=== PATIENT | male | born 1940 | race Caucasian/White ===

== ENCOUNTER 2024-12-01 11:36 | Emergency (ER) | payer MEDICARE, BC ==
[2024-12-01] MEDS ORDERED: Sodium Chloride 0.9% 10 ML Syringe FLUSH PRN ×2 (11:39→11:56)
[2024-12-01 12:05] LABS: BASOPHILS PERCENT AUTO 0.4 % (0.0-1.0); EOSINOPHILS PERCENT AUTO 2.5 % (1.0-3.0); HEMATOCRIT 39.4 % (40.0-54.0); HEMOGLOBIN 12.7 g/dL (14.0-18.0); MEAN CORPUSCULAR HEMOGLOBIN 30.4 pg (27.0-34.0); MEAN CORPUSCULAR HGB CONC 32.2 g/dL (33.0-35.0); MEAN CORPUSCULAR VOLUME 94.3 fL (80-100); MONOCYTES PERCENT AUTO 8.1 % (2-8); PLATELET COUNT,PLT 174 10^3/uL (150-450); RED BLOOD CELL COUNT 4.18 10^6/uL (4.6-6.2); WHITE BLOOD CELL COUNT,WBC 5.5 10^3/uL (5.0-10.0)
[2024-12-01 12:25] LABS: ALBUMIN 3.2 g/dL (3.4-5.0); ANION GAP 10.8 mEq/L (7-13); BILIRUBIN TOTAL 0.4 mg/dL (0.2-1.0); BUN/CREATININE RATIO 15.4 (No establ ref range); C-REACTIVE PROTEIN 0.54 ng/dL (<=0.50); CALCIUM 8.8 mg/dL (8.5-10.1); CREATININE 1.36 mg/dL (0.70-1.30); EST CRCL DRUG DOSING (CG) 39.71 mL/min; POTASSIUM,K 4.8 mmol/L (3.5-5.1); PROTEIN TOTAL,TP 7.1 g/dL (6.4-8.2)
[2024-12-01 12:27] LABS: A/G RATIO 0.82
[2024-12-01 12:28] LABS: INR 1.1 (0.9-1.2); PROTHROMBIN TIME 11.2 SEC (9.0-12.0); PTT,PARTIAL THROMBOPLSTIN TIME 28.9 SEC (22.0-34.0)
[2024-12-01] MEDS: methylPREDNISolone Sodium Succinate 125 MG/2 ML SDV IVPUSH ONE (13:50)
== END 2024-12-01 14:06 | disposition home or self-care (01) ==
LOC: DL.ED 11:36
DX: R06.02 Shortness of breath (principal); Z91.013 Allergy to seafood
CPT/HCPCS: 36415; 71045; 80053; 83605; 83880; 84484; 85025; 85610; 85730; 86140; 93005; 93010; 96374; 99284; 99285-25; J2919

== ENCOUNTER 2025-04-03 08:43 | Inpatient (IN) | payer MEDICARE, BC ==
[2025-04-03] MEDS ORDERED: Sodium Chloride 0.9% 10 ML Syringe FLUSH PRN (08:56)
[2025-04-03 09:06] LABS: BASOPHILS PERCENT AUTO 0.1 % (0.0-1.0); EOSINOPHILS PERCENT AUTO 2.3 % (1.0-3.0); HEMATOCRIT 26.6 % (40.0-54.0); HEMOGLOBIN 8.6 g/dL (14.0-18.0); LYMPHOCYTES PERCENT AUTO 22.6 % (20.5-50.1); MEAN CORPUSCULAR HEMOGLOBIN 30.6 pg (27.0-34.0); MEAN CORPUSCULAR HGB CONC 32.3 g/dL (33.0-35.0); MEAN CORPUSCULAR VOLUME 94.7 fL (80-100); MONOCYTES PERCENT AUTO 10.3 % (2-8); NEUTROPHILS PERCENT AUTO 64.7 % (42.2-75.2); PLATELET COUNT,PLT 86 10^3/uL (150-450); RED BLOOD CELL COUNT 2.81 10^6/uL (4.6-6.2); WHITE BLOOD CELL COUNT,WBC 7.4 10^3/uL (5.0-10.0)
[2025-04-03 09:23] LABS: INR 1.1 (0.9-1.2); PROTHROMBIN TIME 11.6 SEC (9.0-12.0); PTT,PARTIAL THROMBOPLSTIN TIME 29.4 SEC (22.0-34.0)
[2025-04-03 09:28] LABS: ALBUMIN 2.5 g/dL (3.4-5.0); ANION GAP 12.1 mEq/L (7-13); BILIRUBIN TOTAL 0.7 mg/dL (0.2-1.0); BUN/CREATININE RATIO 18.5 (No establ ref range); CALCIUM 8.4 mg/dL (8.5-10.1); CREATININE 1.24 mg/dL (0.70-1.30); EST CRCL DRUG DOSING (CG) 35.81 mL/min; POTASSIUM,K 4.1 mmol/L (3.5-5.1); PROTEIN TOTAL,TP 5.8 g/dL (6.4-8.2)
[2025-04-03 09:29] LABS: A/G RATIO 0.76
[2025-04-03] MEDS: Furosemide 40 MG/4 ML VIAL IVPUSH ONE (10:50)
[2025-04-03 11:24] LABS: PERCENT FE SATURATION 9.2 % (20.0-50.0)
[2025-04-03 11:35] LABS: T4 FREE 0.87 ng/dL (0.76-1.46); TSH ULTRASENSITIVE 4.58 uIU/mL (0.36-3.74)
[2025-04-03] MEDS ORDERED: Metoprolol Tartrate 5 MG/5 ML SDV IVPUSH PRN (12:30)
[2025-04-03] MEDS ORDERED: hydrALAZINE 20 MG/ML SDV IVPUSH PRN (12:30)
[2025-04-03] MEDS ORDERED: Acetaminophen 325 MG Tab PO PRN (13:19)
[2025-04-03] MEDS ORDERED: Sennosides/Docusate Sodium 50-8.6 MG Tab PO PRN (13:19)
[2025-04-03] MEDS ORDERED: Ondansetron 4 MG/2 ML SDV IVPUSH PRN (13:19)
[2025-04-03] MEDS ORDERED: HYDROmorphone 0.5 MG/0.5 ML Syringe IVPUSH PRN ×2 (13:19→13:36)
[2025-04-03] MEDS ORDERED: Albuterol/Ipratropium 3.0-0.5 MG/3 ML Neb Soln NEB PRN (13:19)
[2025-04-03] MEDS ORDERED: Polyethylene Glycol 3350 Powder 17 GM Packet PO PRN (13:19)
[2025-04-03] MEDS ORDERED: Naloxone 2 MG/2 ML Syringe IVPUSH PRN (13:19)
[2025-04-03] MEDS ORDERED: Melatonin 3 MG Tab PO PRN (13:19)
[2025-04-03] MEDS ORDERED: traMADol 50 MG Tab PO PRN (13:35)
[2025-04-03] MEDS: Albumin Human 25 GM in Premix Bag 1 BAG IV SCH (14:08)
[2025-04-03] MEDS ORDERED: Nystatin Topical Powder 60 GM Bottle TOP PRN (14:21)
[2025-04-03] MEDS: Furosemide 100 MG in Sodium Chloride 0.9% 90 ML IV SCH (20:54)
[2025-04-03] MEDS: Tamsulosin 0.4 MG Cap.ER PO SCH (20:55)
[2025-04-03] MEDS: Amitriptyline 25 MG Tab PO SCH (20:55)
[2025-04-03] MEDS: atorvaSTATin 20 MG Tab PO SCH (20:55)
[2025-04-03] MEDS: Docusate Sodium 100 MG Cap PO SCH (20:55)
[2025-04-03] MEDS: Multivitamins with Iron/Calcium/Folic Acid/Minerals Tab PO SCH (20:55)
[2025-04-03] MEDS ORDERED: Tamsulosin 0.4 MG Cap.ER PO SCH (21:00)
[2025-04-03] MEDS ORDERED: Docusate Sodium 100 MG Cap PO SCH (21:00)
[2025-04-04 06:20] LABS: HEMATOCRIT 26.5 % (40.0-54.0); HEMOGLOBIN 8.7 g/dL (14.0-18.0); MEAN CORPUSCULAR HEMOGLOBIN 30.7 pg (27.0-34.0); MEAN CORPUSCULAR HGB CONC 32.8 g/dL (33.0-35.0); MEAN CORPUSCULAR VOLUME 93.6 fL (80-100); PLATELET COUNT,PLT 74 10^3/uL (150-450); RED BLOOD CELL COUNT 2.83 10^6/uL (4.6-6.2); WHITE BLOOD CELL COUNT,WBC 7.4 10^3/uL (5.0-10.0)
[2025-04-04 06:37] LABS: ALBUMIN 3.3 g/dL (3.4-5.0); ANION GAP 14.8 mEq/L (7-13); BILIRUBIN TOTAL 1.5 mg/dL (0.2-1.0); BUN/CREATININE RATIO 22.4 (No establ ref range); CALCIUM 8.4 mg/dL (8.5-10.1); CREATININE 1.34 mg/dL (0.70-1.30); EST CRCL DRUG DOSING (CG) 33.13 mL/min; MAGNESIUM 1.8 mg/dL (1.8-2.4); POTASSIUM,K 3.8 mmol/L (3.5-5.1); PROTEIN TOTAL,TP 6.3 g/dL (6.4-8.2)
[2025-04-04 06:39] LABS: BASOPHILS PERCENT AUTO 0.3 % (0.0-1.0); EOSINOPHILS PERCENT AUTO 4.4 % (1.0-3.0); LYMPHOCYTES PERCENT AUTO 30.8 % (20.5-50.1); MONOCYTES PERCENT AUTO 12.4 % (2-8); NEUTROPHILS PERCENT AUTO 52.1 % (42.2-75.2)
[2025-04-04 06:47] LABS: A/G RATIO 1.1
[2025-04-04 07:09] LABS: EOSINOPHILS PERCENT MAN 1 % (1-3); LYMPHOCYTES PERCENT MAN 38 % (20-50); MONOCYTES PERCENT MAN 5 % (2-8); SEG NEUTROPHILS PERCENT MAN 56 % (42-75)
[2025-04-04] MEDS: Loratadine 10 MG Tab PO SCH (08:55)
[2025-04-04] MEDS: Calcium Carbonate/Vitamin D3 1250 MG-5 MCG Tab PO SCH (08:55)
[2025-04-04] MEDS: Aspirin 81 MG Tab.EC PO SCH (08:55)
[2025-04-04] MEDS: Clopidogrel 75 MG Tab PO SCH (08:55)
[2025-04-04] MEDS: Cholecalciferol (Vitamin D3) 25 MCG Tab PO SCH (08:55)
[2025-04-04] MEDS ORDERED: Non-Formulary Medication 1 Each (Atorvastatin [Lipitor] 40 MG Tablet) PO SCH (09:00)
[2025-04-04] MEDS ORDERED: CHOLECALCIFEROL 50 MCG PO SCH (09:00)
[2025-04-04] MEDS ORDERED: Aspirin 81 MG Tab.EC PO SCH (09:00)
[2025-04-04] MEDS: Acetaminophen 325 MG Tab PO ONE (10:25)
[2025-04-04] MEDS: Dexamethasone 4 MG/ML SDV IVPUSH ONE (10:26)
[2025-04-04] MEDS: Famotidine 20 MG/2 ML SDV IVPUSH ONE (10:29)
[2025-04-04] MEDS: Magnesium Hydroxide 400 MG/5 ML Susp 30 ML Cup PO PRN (14:13)
[2025-04-04] MEDS ORDERED: Melatonin 3 MG Tab PO PRN (18:40)
[2025-04-05 06:34] LABS: BASOPHILS PERCENT AUTO 0.1 % (0.0-1.0); EOSINOPHILS PERCENT AUTO 2.2 % (1.0-3.0); HEMOGLOBIN 9.2 g/dL (14.0-18.0); LYMPHOCYTES PERCENT AUTO 25.2 % (20.5-50.1); MEAN CORPUSCULAR HEMOGLOBIN 30.6 pg (27.0-34.0); MEAN CORPUSCULAR HGB CONC 32.9 g/dL (33.0-35.0); MONOCYTES PERCENT AUTO 9.5 % (2-8); PLATELET COUNT,PLT 89 10^3/uL (150-450); RED BLOOD CELL COUNT 3.01 10^6/uL (4.6-6.2); WHITE BLOOD CELL COUNT,WBC 7.1 10^3/uL (5.0-10.0)
[2025-04-05 07:03] LABS: A/G RATIO 1.3; ALBUMIN 3.8 g/dL (3.4-5.0); BUN/CREATININE RATIO 28.1 (No establ ref range); CALCIUM 9.2 mg/dL (8.5-10.1); CREATININE 1.21 mg/dL (0.70-1.30); EST CRCL DRUG DOSING (CG) 36.69 mL/min; MAGNESIUM 2.2 mg/dL (1.8-2.4); PROTEIN TOTAL,TP 6.7 g/dL (6.4-8.2)
[2025-04-05] MEDS: Acetaminophen 325 MG Tab PO PRN (07:45)
[2025-04-05] MEDS: Polyethylene Glycol 3350 Powder 17 GM Packet PO SCH (08:28)
[2025-04-05] MEDS: Furosemide 100 MG in Sodium Chloride 0.9% 90 ML IV SCH (11:07)
[2025-04-05] MEDS: Lactulose Soln 10 GM/15 ML 30 ML UD Cup PO ONE (12:14)
[2025-04-05] MEDS: Bisacodyl 10 MG Supp RECTAL PRN (13:45)
[2025-04-06 06:46] LABS: BASOPHILS PERCENT AUTO 0.1 % (0.0-1.0); EOSINOPHILS PERCENT AUTO 4.6 % (1.0-3.0); HEMATOCRIT 31.4 % (40.0-54.0); HEMOGLOBIN 10.2 g/dL (14.0-18.0); LYMPHOCYTES PERCENT AUTO 29.5 % (20.5-50.1); MEAN CORPUSCULAR HEMOGLOBIN 30.7 pg (27.0-34.0); MEAN CORPUSCULAR HGB CONC 32.5 g/dL (33.0-35.0); MEAN CORPUSCULAR VOLUME 94.6 fL (80-100); MONOCYTES PERCENT AUTO 10.1 % (2-8); NEUTROPHILS PERCENT AUTO 55.7 % (42.2-75.2); PLATELET COUNT,PLT 111 10^3/uL (150-450); RED BLOOD CELL COUNT 3.32 10^6/uL (4.6-6.2); WHITE BLOOD CELL COUNT,WBC 8.4 10^3/uL (5.0-10.0)
[2025-04-06 07:13] LABS: A/G RATIO 1.2; ALBUMIN 3.8 g/dL (3.4-5.0); ANION GAP 10.5 mEq/L (7-13); BILIRUBIN TOTAL 1.2 mg/dL (0.2-1.0); CALCIUM 9.2 mg/dL (8.5-10.1); CREATININE 1.4 mg/dL (0.70-1.30); EST CRCL DRUG DOSING (CG) 31.71 mL/min; MAGNESIUM 2.1 mg/dL (1.8-2.4); POTASSIUM,K 4.5 mmol/L (3.5-5.1); PROTEIN TOTAL,TP 6.9 g/dL (6.4-8.2)
[2025-04-06] MEDS ORDERED: Lactulose Soln 10 GM/15 ML 30 ML UD Cup PO PRN (09:37)
[2025-04-06] MEDS: Lactulose Soln 10 GM/15 ML 30 ML UD Cup PO ONE (11:17)
[2025-04-06] MEDS: Benzocaine/Docusate Sodium 20-283 MG/5 ML Enema RECTAL ONE (11:20)
[2025-04-06] MEDS ORDERED: Aluminum Hydroxide/Magnesium Hydroxide/Simethicone Susp 30 ML Cup PO PRN (19:32)
[2025-04-06] MEDS ORDERED: Simethicone 80 MG Tab.Chew PO PRN (19:32)
[2025-04-07 06:33] LABS: BASOPHILS PERCENT AUTO 0.1 % (0.0-1.0); EOSINOPHILS PERCENT AUTO 4.1 % (1.0-3.0); HEMATOCRIT 32.6 % (40.0-54.0); HEMOGLOBIN 10.9 g/dL (14.0-18.0); LYMPHOCYTES PERCENT AUTO 29.1 % (20.5-50.1); MEAN CORPUSCULAR HEMOGLOBIN 31.8 pg (27.0-34.0); MEAN CORPUSCULAR HGB CONC 33.4 g/dL (33.0-35.0); NEUTROPHILS PERCENT AUTO 55.7 % (42.2-75.2); PLATELET COUNT,PLT 127 10^3/uL (150-450); RED BLOOD CELL COUNT 3.43 10^6/uL (4.6-6.2); WHITE BLOOD CELL COUNT,WBC 9.5 10^3/uL (5.0-10.0)
[2025-04-07 06:55] LABS: ALBUMIN 3.4 g/dL (3.4-5.0); ANION GAP 10.1 mEq/L (7-13); BILIRUBIN TOTAL 1.3 mg/dL (0.2-1.0); BUN/CREATININE RATIO 32.9 (No establ ref range); CALCIUM 8.8 mg/dL (8.5-10.1); CREATININE 1.49 mg/dL (0.70-1.30); EST CRCL DRUG DOSING (CG) 29.8 mL/min; MAGNESIUM 2.2 mg/dL (1.8-2.4); POTASSIUM,K 4.1 mmol/L (3.5-5.1); PROTEIN TOTAL,TP 6.7 g/dL (6.4-8.2)
[2025-04-09] MEDS ORDERED: Furosemide 40 MG Tab PO SCH (09:00)
== END 2025-04-08 10:55 | disposition swing bed (61) | DRG 280 ==
LOC: DL.ED 08:43 → DL.MS 11:44 → UNDOADMIN 11:55 → DL.MS 11:55
PROVIDERS: ADMIT Internal Medicine; ATTEND Internal Medicine
PROC: 30233N1 Transfusion of Nonautologous Red Blood Cells into Peripheral Vein, Percutaneous Approach (ICD-10-PCS; principal; 2025-04-03)
DX: I11.0 Hypertensive heart disease with heart failure (principal); I50.31 Acute diastolic (congestive) heart failure; I21.4 Non-ST elevation (NSTEMI) myocardial infarction; E44.0 Moderate protein-calorie malnutrition; I69.354 Hemiplegia and hemiparesis following cerebral infarction affecting left non-dominant side; J98.11 Atelectasis; I25.10 Atherosclerotic heart disease of native coronary artery without angina pectoris; G35 Multiple sclerosis; G89.29 Other chronic pain; M54.9 Dorsalgia, unspecified; D50.9 Iron deficiency anemia, unspecified; K59.00 Constipation, unspecified; R53.1 Weakness; G47.33 Obstructive sleep apnea (adult) (pediatric); E78.5 Hyperlipidemia, unspecified; M06.9 Rheumatoid arthritis, unspecified; Z79.82 Long term (current) use of aspirin; Z79.899 Other long term (current) drug therapy; Z95.2 Presence of prosthetic heart valve; Z68.36 Body mass index [BMI] 36.0-36.9, adult; Z98.890 Other specified postprocedural states; Z91.013 Allergy to seafood
CPT/HCPCS: 36415; 36430; 71045; 74018; 80053; 80061; 82306; 83540; 83550; 83735; 83880; 84439; 84443; 84484; 85025; 85610; 85730; 86850; 86900; 86901; 86920; 86922; 93005; 93010; 93306; 96374; 97161-GP; 97165-GO; 97530-GO; 97530-GP; 99223; 99233; 99238; 99285; 99285-25; A9270-GY; J1100; J1439; J1938; J7050; P9016; P9047

== ENCOUNTER 2025-04-08 08:15 | Inpatient (IN) | payer MEDICARE, BC ==
[2025-04-08] MEDS ORDERED: Magnesium Hydroxide 400 MG/5 ML Susp 30 ML Cup PO PRN (09:43)
[2025-04-08] MEDS ORDERED: Ondansetron 4 MG/2 ML SDV IVPUSH PRN (09:43)
[2025-04-08] MEDS ORDERED: Sodium Chloride 0.9% 10 ML Syringe FLUSH PRN (09:43)
[2025-04-08] MEDS ORDERED: Aluminum Hydroxide/Magnesium Hydroxide/Simethicone Susp 30 ML Cup PO PRN (09:43)
[2025-04-08] MEDS ORDERED: Nystatin Topical Powder 60 GM Bottle TOP PRN (09:43)
[2025-04-08] MEDS: Multivitamins with Iron/Calcium/Folic Acid/Minerals Tab PO SCH (20:49)
[2025-04-09] MEDS: Cholecalciferol (Vitamin D3) 25 MCG Tab PO SCH (09:16)
[2025-04-09] MEDS: Calcium Carbonate/Vitamin D3 1250 MG-5 MCG Tab PO SCH (09:17)
[2025-04-11] MEDS: Lactulose Soln 10 GM/15 ML 30 ML UD Cup PO ONE (12:47)
[2025-04-11] MEDS: Benzocaine/Docusate Sodium 20-283 MG/5 ML Enema RECTAL ONE ×2 (16:20)
[2025-04-12 10:43] LABS: APPEARANCE,URINE TURBID (CLEAR); GLUCOSE,URINE NEGATIVE (NEGATIVE); OCCULT BLOOD,URINE LARGE (NEGATIVE)
[2025-04-12 10:54] LABS: EPITHELIAL CELLS,URINE RARE /HPF (NOT SEEN)
[2025-04-12 10:56] LABS: TRIPLE PHOSPHATE CRYSTALS,UR FEW /HPF (NOT SEEN)
[2025-04-13 06:32] LABS: BASOPHILS PERCENT AUTO 0.2 % (0.0-1.0); EOSINOPHILS PERCENT AUTO 3.5 % (1.0-3.0); LYMPHOCYTES PERCENT AUTO 20.6 % (20.5-50.1); MONOCYTES PERCENT AUTO 7.7 % (2-8); NEUTROPHILS PERCENT AUTO 68.0 % (42.2-75.2); PLATELET COUNT,PLT 186 10^3/uL (150-450); RED BLOOD CELL COUNT 3.71 10^6/uL (4.6-6.2); WHITE BLOOD CELL COUNT,WBC 11.6 10^3/uL (5.0-10.0)
[2025-04-13 07:11] LABS: ALANINE AMINOTRANSFERASE,ALT 65.0 U/L (16-63); ASPARTATE AMNIOTRANSFERASE,AST 44.0 U/L (15-37); BILIRUBIN TOTAL 1.0 mg/dL (0.2-1.0); BLOOD UREA NITROGEN,BUN 51.0 mg/dL (7-18); CARBON DIOXIDE,CO2 28.0 mmol/L (21-32); CHLORIDE,CL 105.0 mmol/L (98-107); CREATININE 1.48 mg/dL (0.70-1.30); EST CRCL DRUG DOSING (CG) 30.0 mL/min; GLUCOSE RANDOM 97.0 mg/dL (70-99); POTASSIUM,K 4.5 mmol/L (3.5-5.1); PROTEIN TOTAL,TP 6.8 g/dL (6.4-8.2); SODIUM,NA 140.0 mmol/L (136-145)
[2025-04-13 07:12] LABS: A/G RATIO 0.79; ESTIMATED GFR 46.0 mL/min (>=60)
[2025-04-13 20:20] LABS: BASOPHILS PERCENT AUTO 0.1 % (0.0-1.0); EOSINOPHILS PERCENT AUTO 0.7 % (1.0-3.0); LYMPHOCYTES PERCENT AUTO 8.5 % (20.5-50.1); MONOCYTES PERCENT AUTO 5.4 % (2-8); NEUTROPHILS PERCENT AUTO 85.3 % (42.2-75.2); PLATELET COUNT,PLT 202 10^3/uL (150-450); RED BLOOD CELL COUNT 3.82 10^6/uL (4.6-6.2); WHITE BLOOD CELL COUNT,WBC 10.2 10^3/uL (5.0-10.0)
[2025-04-13 20:40] LABS: CREATININE 1.59 mg/dL (0.70-1.30); EST CRCL DRUG DOSING (CG) 27.92 mL/min
[2025-04-13 20:47] LABS: LACTIC ACID 0.9 mmol/L (0.4-2.0)
[2025-04-13 20:48] LABS: ESTIMATED GFR 42.0 mL/min (>=60)
[2025-04-13] MEDS: Ampicillin/Sulbactam Na 3 GM in Sodium Chloride 0.9% 100 ML IV SCH (21:08)
[2025-04-13 22:09] LABS: APPEARANCE,URINE TURBID (CLEAR); GLUCOSE,URINE NEGATIVE (NEGATIVE); OCCULT BLOOD,URINE LARGE (NEGATIVE)
[2025-04-13 23:37] LABS: EPITHELIAL CELLS,URINE FEW /HPF (NOT SEEN)
[2025-04-14 06:24] LABS: BASOPHILS PERCENT AUTO 0.1 % (0.0-1.0); EOSINOPHILS PERCENT AUTO 0.1 % (1.0-3.0); LYMPHOCYTES PERCENT AUTO 15.2 % (20.5-50.1); MONOCYTES PERCENT AUTO 8.5 % (2-8); NEUTROPHILS PERCENT AUTO 76.1 % (42.2-75.2); PLATELET COUNT,PLT 170 10^3/uL (150-450); RED BLOOD CELL COUNT 3.31 10^6/uL (4.6-6.2); WHITE BLOOD CELL COUNT,WBC 7.3 10^3/uL (5.0-10.0)
[2025-04-14 07:01] LABS: ALANINE AMINOTRANSFERASE,ALT 58.0 U/L (16-63); ASPARTATE AMNIOTRANSFERASE,AST 39.0 U/L (15-37); BILIRUBIN TOTAL 0.8 mg/dL (0.2-1.0); BLOOD UREA NITROGEN,BUN 50.0 mg/dL (7-18); CARBON DIOXIDE,CO2 26.0 mmol/L (21-32); CHLORIDE,CL 104.0 mmol/L (98-107); CREATININE 1.44 mg/dL (0.70-1.30); EST CRCL DRUG DOSING (CG) 30.83 mL/min; GLUCOSE RANDOM 103.0 mg/dL (70-99); POTASSIUM,K 4.7 mmol/L (3.5-5.1); PROTEIN TOTAL,TP 5.8 g/dL (6.4-8.2); SODIUM,NA 136.0 mmol/L (136-145)
[2025-04-14 07:03] LABS: A/G RATIO 0.76; ESTIMATED GFR 47.0 mL/min (>=60)
== END 2025-04-14 11:19 | DRG 947 ==
LOC: DL.MS 11:10
PROVIDERS: ADMIT Internal Medicine; ATTEND Internal Medicine
DX: R53.1 Weakness (principal); I50.33 Acute on chronic diastolic (congestive) heart failure; E44.0 Moderate protein-calorie malnutrition; N17.9 Acute kidney failure, unspecified; N39.0 Urinary tract infection, site not specified; I11.0 Hypertensive heart disease with heart failure; R53.81 Other malaise; E78.5 Hyperlipidemia, unspecified; G47.33 Obstructive sleep apnea (adult) (pediatric); I25.2 Old myocardial infarction; Z95.5 Presence of coronary angioplasty implant and graft; Z86.73 Personal history of transient ischemic attack (TIA), and cerebral infarction without residual deficits; G89.29 Other chronic pain; R31.0 Gross hematuria; M48.061 Spinal stenosis, lumbar region without neurogenic claudication; M47.817 Spondylosis without myelopathy or radiculopathy, lumbosacral region; M51.379 Other intervertebral disc degeneration, lumbosacral region without mention of lumbar back pain or lower extremity pain; M06.9 Rheumatoid arthritis, unspecified; I05.0 Rheumatic mitral stenosis; D50.9 Iron deficiency anemia, unspecified; K59.09 Other constipation; Z68.35 Body mass index [BMI] 35.0-35.9, adult
CPT/HCPCS: 36415; 51798; 71045; 76770; 80053; 81001; 82565; 82947; 83605; 83735; 84145; 84484; 85025; 86140; 87040; 87077; 87086; 87088; 87186; 97161-GP; 97165-GO; 97530-GO; 97530-GP; 99306; 99309; 99316; A9270-GY; J0295; J3370; J7040; J7120

== ENCOUNTER 2025-08-12 11:28 | Emergency (ER) | payer MEDICARE, BC ==
[2025-08-12] MEDS ORDERED: Sodium Chloride 0.9% 10 ML Syringe FLUSH PRN (12:01)
[2025-08-12 12:15] LABS: BASOPHILS PERCENT AUTO 0.1 % (0.0-1.0); EOSINOPHILS PERCENT AUTO 0.4 % (1.0-3.0); LYMPHOCYTES PERCENT AUTO 5.5 % (20.5-50.1); MONOCYTES PERCENT AUTO 3.2 % (2-8); NEUTROPHILS PERCENT AUTO 90.8 % (42.2-75.2); PLATELET COUNT,PLT 295 10^3/uL (150-450); RED BLOOD CELL COUNT 3.54 10^6/uL (4.6-6.2); WHITE BLOOD CELL COUNT,WBC 19.4 10^3/uL (5.0-10.0)
[2025-08-12] MEDS: Ondansetron 4 MG/2 ML SDV IVPUSH ONE (12:17)
[2025-08-12 12:19] LABS: ALANINE AMINOTRANSFERASE,ALT 77 U/L (16-63); ASPARTATE AMNIOTRANSFERASE,AST 89 U/L (15-37); BILIRUBIN TOTAL 0.7 mg/dL (0.2-1.0); BLOOD UREA NITROGEN,BUN 31 mg/dL (7-18); CARBON DIOXIDE,CO2 28 mmol/L (21-32); CHLORIDE,CL 93 mmol/L (98-107); CREATININE 1.06 mg/dL (0.70-1.30); EST CRCL DRUG DOSING (CG) 40.26 mL/min; GLUCOSE RANDOM 91 mg/dL (70-99); POTASSIUM,K 3.9 mmol/L (3.5-5.1); PROTEIN TOTAL,TP 6.5 g/dL (6.4-8.2); SODIUM,NA 131 mmol/L (136-145)
[2025-08-12 12:21] LABS: A/G RATIO 0.38; ESTIMATED GFR 68 mL/min (>=60)
[2025-08-12 12:22] LABS: LACTIC ACID 1.1 mmol/L (0.4-2.0)
[2025-08-12] MEDS: Iopamidol 612 MG/ML 100 ML Bottle IVPUSH ONE (12:33)
[2025-08-12 12:35] LABS: B-TYPE NATRIURETIC PEPTIDE,BNP 126 pg/ml (0-100)
[2025-08-12 12:39] LABS: PTT,PARTIAL THROMBOPLSTIN TIME 31.9 SEC (22.0-34.0)
[2025-08-12 12:50] LABS: INR 1.1 (0.9-1.2)
[2025-08-12] MEDS: VANCOmycin 1.75 GM/350 ML 1.75 GM in Premix Bag 1 BAG IV ONE (13:16)
[2025-08-12 14:25] LABS: APPEARANCE,URINE CLEAR (CLEAR); GLUCOSE,URINE NEGATIVE (NEGATIVE); OCCULT BLOOD,URINE NEGATIVE (NEGATIVE)
== END 2025-08-12 17:12 ==
LOC: DL.ED 11:28
DX: A41.9 Sepsis, unspecified organism (principal); E87.1 Hypo-osmolality and hyponatremia; E87.8 Other disorders of electrolyte and fluid balance, not elsewhere classified; N13.30 Unspecified hydronephrosis; I11.0 Hypertensive heart disease with heart failure; M86.9 Osteomyelitis, unspecified; I96 Gangrene, not elsewhere classified; I50.9 Heart failure, unspecified; R23.4 Changes in skin texture; J90 Pleural effusion, not elsewhere classified; K80.80 Other cholelithiasis without obstruction; R33.9 Retention of urine, unspecified; Z86.16 Personal history of COVID-19; Z91.013 Allergy to seafood; Z79.82 Long term (current) use of aspirin; Z79.899 Other long term (current) drug therapy
CPT/HCPCS: 36415; 51702; 71260; 74177; 80053; 81003; 83605; 83735; 83880; 84145; 85025; 85610; 85730; 86140; 87040; 87070; 87077; 87186; 96361; 96365; 96366; 96368; 96375; 99285-25; C1758; J2405; J2543; J3375; J7030; Q9967